=== PATIENT | male | born 1985 | race Native Hawaiian/Other Pacific Islander ===

== ENCOUNTER 2018-11-03 13:07 | Emergency (ER) | payer OTHER ==
[~2018-11-03] VITALS: Ht 177.8 cm; Wt 95.3 kg
[2018-11-03 13:16] VITALS: BP 137/81
== END 2018-11-03 13:37 | disposition home or self-care (01) ==
LOC: ER 13:09
DX: J02.9 Acute pharyngitis, unspecified (principal); Z98.890 Other specified postprocedural states
CPT/HCPCS: Z7502